=== PATIENT | female | born 1980 | race Two or more races ===

== ENCOUNTER 2017-08-02 13:27 | Outpatient (CLI) | payer OTHER | END 2017-08-02 13:36 | disposition home or self-care (01) | LOC: MAMO-SONO 13:27 | DX: Z12.31 Encounter for screening mammogram for malignant neoplasm of breast (principal); N64.89 Other specified disorders of breast; N64.4 Mastodynia; N60.11 Diffuse cystic mastopathy of right breast ==

== ENCOUNTER 2018-02-12 10:48 | Outpatient (CLI) | payer OTHER | END 2018-02-12 10:55 | disposition home or self-care (01) | LOC: SONOGRAMA 10:48 | DX: N60.19 Diffuse cystic mastopathy of unspecified breast (principal); N60.11 Diffuse cystic mastopathy of right breast; D24.2 Benign neoplasm of left breast ==

== ENCOUNTER → 2018-07-04 | Outpatient (CLI) | payer OTHER | END | disposition home or self-care (01) | LOC: MAMO-SONO 13:36 | DX: N64.4 Mastodynia (principal); N60.11 Diffuse cystic mastopathy of right breast; Z12.31 Encounter for screening mammogram for malignant neoplasm of breast; N63.10 Unspecified lump in the right breast, unspecified quadrant; N63.20 Unspecified lump in the left breast, unspecified quadrant ==

== ENCOUNTER 2018-11-20 11:58 | Outpatient (CLI) | payer OTHER | END 2018-11-20 12:11 | disposition home or self-care (01) | LOC: RAD 11:58 | DX: M25.542 Pain in joints of left hand (principal); G89.11 Acute pain due to trauma ==

== ENCOUNTER 2022-08-07 08:03 | Emergency (ER) | payer OTHER ==
[~2022-08-07] VITALS: Ht 172.7 cm; Wt 52.2 kg
[2022-08-07] MEDS ORDERED: MAGNESIUM200 MG (08:16)
== END 2022-08-07 12:25 | disposition home or self-care (01) ==
LOC: ER 08:03
DX: M54.2 Cervicalgia (principal); G44.89 Other headache syndrome; R42 Dizziness and giddiness; R53.81 Other malaise
CPT/HCPCS: 70450; 72126; Q9965